=== PATIENT | female | born 1990 | race Caucasian/White ===

== ENCOUNTER 2017-01-20 00:31 | Emergency (ER) | payer OTHER ==
--- NOTE | ~2017-01-20 | CR94 ---
[facility] A Service of [facility] & [facility] RADIOLOGY TEXT RESULTS PATIENT: SHIELA WHITE LOCATION: SED : [birth year] UNIT #: [id number] AGE: [address]: Elisabeth Ferrera APRN SEX: F ORDER DR: [id number] [place] [id number] E MR#: [id number] Acc #: [id number] NAME: SHIELA WHITE : 1990 SEX: F STUDY DATE/TIME: 01/20/2017 0:36 UNIT: SED ROOM: STUDY DESCRIPTION: CR Elbow Min 3 Views Rt Attending Physician: Elisabeth Ferrera A.P.R.N. Ordering Physician: Elisabeth Ferrera A.P.R.N. Primary Care Physician: Amy Parra A.P.R.N. MEDICAL IMAGING REPORT This report is preliminary unless electronic signature is present. EXAM Right elbow 01/20/2017 HISTORY Right elbow pain status post fall today. COMPARISON None. FINDINGS 3 views of the right elbow demonstrate no acute fracture or dislocation. No joint effusion. Soft tissues are unremarkable. IMPRESSION Unremarkable right elbow. Dictated by... Les Garay M.D. THIS IS AN ELECTRONICALLY VERIFIED REPORT Les Garay M.D. at 01/21/2017 4:39 PM CECE/renetta TD: 01/20/2017 16:36 JOB #: [id number] MEDICAL IMAGING REPORT Page 1 of 1
[~2017-01-20 00:31] MED LIST: AFRIN3 ML; AMOXICILLIN500 M1 PO; BACTRIM DS TABL1 TA1 PO; BIRTH CONTROL PILL PO; CELEXA20 MG PO; CITALOPRAM HBR10 MG; COLESTID PO; DOXYCYCLINE150 MG PO; ERYTHROMYC3.5 GM OPT OD; FLEXERIL10 MG PO; IBUPROFEN PO; IBUPROFEN800 MG PO; K-DUR20 ME1 PO; LORTAB 10-5001 EACH PO; LORTAB 101 TAB 10/5 PO; MACRODANTIN PO; MOBIC PO; NO MEDICATIONS; PHENERGAN PO; PREDNISONE5 M1 PO; TRAMADOL HCL50 M1 PO; VICODIN 5/500 T1 TAB PO; VOLTAREN75 MG PO; ZOFRAN ODT4 MG PO; ZOFRAN PO
== END 2017-01-20 01:21 | disposition home or self-care (01) ==
LOC: SED 00:31
DX: S50.01XA Contusion of right elbow, initial encounter (principal); J45.909 Unspecified asthma, uncomplicated; K21.9 Gastro-esophageal reflux disease without esophagitis; F32.9 Major depressive disorder, single episode, unspecified; W01.0XXA Fall on same level from slipping, tripping and stumbling without subsequent striking against object, initial encounter; Y92.009 Unspecified place in unspecified non-institutional (private) residence as the place of occurrence of the external cause
CPT/HCPCS: 73080; 99283

== ENCOUNTER 2017-02-07 23:59 | Emergency (ER) | payer OTHER ==
--- NOTE | ~2017-02-07 | CT4 ---
[facility] A Service of [facility] & [facility] RADIOLOGY TEXT RESULTS PATIENT: SHIELA WHITE LOCATION: [facility] : [birth year] UNIT #: [id number] AGE: [address]: Ramakrishna Montero MD SEX: F ORDER DR: [id number] [facility] [address] [place], [place] [address] [id number] MR#: [id number] Acc #: [id number] NAME: SHIELA WHITE : 1990 SEX: F STUDY DATE/TIME: 02/08/2017 1:21 UNIT: [facility] ROOM: STUDY DESCRIPTION: CT Abd and Pelv Wo Cont Attending Physician: Ramakrishna Montero M.D. Ordering Physician: Ramakrishna Montero M.D. Primary Care Physician: Amy Parra A.P.R.N. MEDICAL IMAGING REPORT This report is preliminary unless electronic signature is present EXAM CT abdomen and pelvis without contrast INDICATIONS Abdominal pain, right flank pain and vomiting for 2 hours. There is no comparison. TECHNIQUE Axial 3 mm images were obtained through the abdomen and pelvis without IV or oral contrast. This CT exam was performed with one or more of the following radiation dose reduction techniques: Automatic exposure control, adjustment of mA and/or kV according to patient size, and iterative reconstruction. FINDINGS Lung bases are clear. The liver, gallbladder, spleen, pancreas, adrenal glands and aorta are normal in appearance. The left kidney has a nonobstructing 2-mm stone in the upper pole. The right kidney shows moderate hydronephrosis. There are 2 upper-pole nonobstructing stones measuring 2-3 mm, each. There is marked right hydronephrosis and the right ureter is dilated and this is probably caused by a distal right ureteral stone. There is a 2-3 mm calcification at the ureterovesical juncture. Aorta is normal in size and there is no adenopathy. The bowel, including the appendix, appears normal. There are bilateral ovarian cystic lesions, with the left one being 4.8 cm in diameter and the right one being 5.9 cm in diameter. The uterus is normal. The bladder is normal. The bones are unremarkable. IMPRESSION 1. Moderate right hydronephrosis that appears to be due to a 2-3 mm stone near the bladder wall. 2. Bilateral nonobstructing small stones. 3. Bilateral ovarian cystic lesions measuring up to 5.9 cm on the STS. [facility] A Service of [facility] & [facility] RADIOLOGY TEXT RESULTS PATIENT: [facility]ITE [id number] [birth year] UNIT #: [id number] AGE: [address]: Ramakrishna Montero MD SEX: F ORDER DR: right and 4.8 cm on the left. Dictated by... Ambrocio Cobb M.D. THIS IS AN ELECTRONICALLY VERIFIED REPORT Ambrocio Cobb M.D. at 02/08/2017 1:14 PM NORA/joyce TD: 02/08/2017 03:21 JOB #: [id number] MEDICAL IMAGING REPORT Page 1 of 1 COPY
[2017-02-08 00:46] LABS: URINE SOURCE CLEAN CATCH
[2017-02-08 00:52] LABS: URINE APPEARANCE CLOUDY; URINE BILIRUBIN NEG (NEG); URINE BLOOD 2+ (NEG); URINE COLOR YELLOW; URINE GLUCOSE NEG (NEG); URINE KETONE TRACE (NEG); URINE LEUKOCYTE ESTERASE TRACE (NEG); URINE NITRATE NEG (NEG); URINE PH 5.5 (5-8); URINE PROTEIN TRACE (NEG); URINE SPECIFIC GRAVITY 1.029 (1.003-1.035)
[2017-02-08 00:55] LABS: CULTURE INDICATED? YES; URBCS1 AUWI 0-2 /[HPF] (0-2); URINE BACTERIA AUWI 1+ (NEGATIVE); URINE SQUAMOUS EPITHELIAL CELL MOD /[HPF]
[2017-02-08 03:14] LABS: ALBUMIN SERUM 4.2 g/dL (3.5-5.0); BASOPHIL# 0.1 X10e3 (0-0.3); BASOPHIL% 0.6 % (0-2.5); BILIRUBIN, DIRECT 0.1 mg/dL (0.0-0.2); BILIRUBIN,INDIRECT 0.6 mg/dL (0.0-0.9); BILIRUBIN,TOTAL 0.7 mg/dL (0.2-2.0); BUN/CREATININE RATIO 12.5; CREATININE SERUM 0.8 mg/dL (0.6-1.4); EOSINOPHIL# 0.1 X10e3 (0-0.7); EOSINOPHIL% 0.6 % (0.0-7.0); GLOM FILT RATE Estimated 101.1 mL/min (>60); HEMATOCRIT 38.6 % (35.0-45.0); HEMOGLOBIN 12.9 gm/dL (12.0-16.0); LYMPHOCYTE# 1.9 X10e3 (1.0-3.5); LYMPHOCYTE% 13.6 % (17.0-45.0); MEAN CELL VOLUME 83.2 FL (83-96); MEAN CORPUSCULAR HEMOGLOBIN 27.7 PG (28-34); MEAN CORPUSCULAR HGB CONC 33.3 g/dL (30-36); MEAN PLATELET VOLUME 9.5 FL (6.5-11.5); MONOCYTE# 0.7 X10e3 (0-1.0); MONOCYTE% 5.4 % (3.0-12.0); NEUTROPHIL# 11.1 X10e3 (1.5-7.1); NEUTROPHIL% 79.8 % (40-75); PLATELET COUNT 253 X10e3 (140-420); POTASSIUM 3.4 mmol/L (3.5-5.1); PROTEIN TOTAL SERUM 7.7 g/dL (6.0-8.3); RED BLOOD COUNT 4.64 X10e (3.90-5.30); RED CELL DISTRIBUTION WIDTH 12.4 % (11.0-15.5); WHITE BLOOD COUNT 13.9 X10e3 (4.0-10.5)
[2017-02-08 03:15] LABS: DIFF IND NO
[2017-02-08 03:16] LABS: URINE CRYSTALS CALCIUM OXALATE /[HPF]; URINE MUCUS PRESENT
== END 2017-02-08 02:50 | disposition home or self-care (01) ==
LOC: CED 23:59
PROVIDERS: Emergency Medicine
DX: N13.2 Hydronephrosis with renal and ureteral calculous obstruction (principal); K21.9 Gastro-esophageal reflux disease without esophagitis; J45.909 Unspecified asthma, uncomplicated; Z98.51 Tubal ligation status
CPT/HCPCS: 36415; 74176; 80048; 80076; 81003; 83690; 84703; 85025; 87086; 96374; 96375; 99284; J2270; J2405